=== PATIENT | female | born 1955 ===

== ENCOUNTER 2018-07-21 05:22 | Day surgery (SDC) | payer MEDICARE, OTHER ==
[2018-07-21] VITALS (9 sets, daily range): BP systolic 136–169; BP diastolic 34–75
[~2018-07-21] VITALS: Ht 147.3 cm; Wt 48.1 kg
[2018-07-21] MEDS ORDERED: FERROUS SULFAT325 MG ORAL (06:47)
[2018-07-21] MEDS ORDERED: NORMODYNE100 MG ORAL (06:47)
[2018-07-21] MEDS ORDERED: MULTIVITAMINS1 EAC2 ORAL (06:47)
[2018-07-21] MEDS ORDERED: BUMETANIDE2 MG ORAL (06:47)
[2018-07-21] MEDS ORDERED: ATORVASTATIN CA40 MG ORAL (06:47)
[2018-07-21] MEDS ORDERED: AMLODIPINE BESY10 MG ORAL (06:47)
[2018-07-21] MEDS ORDERED: FOLIC ACID1 MG ORAL (06:47)
[2018-07-21] MEDS ORDERED: LISINOPRIL5 MG ORAL (06:47)
[2018-07-21] MEDS ORDERED: VITAMIN D1000 UNI1 ORAL (06:47)
[2018-07-21] MEDS ORDERED: Heparin 5000 units/ml inj ONE (07:09)
[2018-07-21] MEDS ORDERED: Heparin 1000 units/ml 1ml Vial ONE (07:09)
[2018-07-21] MEDS ORDERED: Neosporin Oint Ud Pkt TOPIC ONE ×2 (07:10→07:33)
[2018-07-21] MEDS ORDERED: Thrombin 5000 units TOPIC ONE (07:11)
[2018-07-21] MEDS ORDERED: Lidocaine 1% Plain 30 ml INJ ONE (07:11)
[2018-07-21] MEDS ORDERED: Bupivacaine 0.25% Inj 30ml INJ ONE (07:11)
[2018-07-21] MEDS ORDERED: Gelfoam Size TOPIC ONE (07:11)
[2018-07-21] MEDS ORDERED: NeoSporin Gu Irrig 1ml Amp IRRIG ONE (07:12)
[2018-07-21] MEDS ORDERED: Bacitracin 50000 Units Vial ONE (07:12)
--- NOTE | 2018-07-21 07:14 | Anethesia Preoperative Eval ---
Anesthesia Pre-op PMH/ROS General Date of Evaluation: Jul 21, 2018 Time of Evaluation: 07:24 Anesthesiologist: Gaston ASA Score: ASA 3 Mallampati Score Class I : Soft palate, uvula, fauces, pillars visible Class II: Soft palate, uvula, fauces visible Class III: Soft palate, base of uvula visible Class IV: Only hard plate visible Mallampati Classification: Class II Surgeon: Mohan Diagnosis: ESRD Surgical Procedure: L Arm AV Shunt Anesthesia History: none Family History: no anesthesia problems Allergies: Coded Allergies: No Known Allergies (Unverified , 07/18/18) Medications: see eMAR Patient NPO?: Yes Past Medical History Cardiovascular: Reports: HTN, other - HL Gastrointestinal/Genitourinary: Reports: ESRD Hematology/Immune: Reports: anemia Anesthesia Pre-op Phys. Exam Physician Exam Last Vital Signs Date Time Temp Pulse Resp B/P (MAP) Pulse Ox O2 Delivery O2 Flow Rate FiO2 07/21/18 06:20 96.9 59 20 169/70 99 Room Air Constitutional: NAD Neurologic: CN 2-12 intact Cardiovascular: RRR Respiratory: CTA Gastrointestinal: S/NT/ND Airway Exam Mallampati Score: Class II MO: limited ROM: limited Teeth: missing, other - Some teeth Dentures: upper, lower Anesthesia Pre-op A/P Labs Chemistry Test 07/21/18 06:15 Potassium Level 4.7 MMOL/L (3.5-5.1) Risk Assessment & Plan Assessment: ASA 3 Plan: GA, SED Status Change Before Surgery: No Pre-Antibiotics Dru Gram Ancef IV Given Within 1 Hr of Incision: Yes Time Given: 07:46 Chapin Feldman MD Jul 21, 2018 07:14
[2018-07-21] MEDS ORDERED: LR 1000ml 1,000 ML IVLG SCH (07:16)
[2018-07-21] MEDS ORDERED: Sodium Chloride 10ml vial INJ ONE (07:17)
[2018-07-21] MEDS ORDERED: Lidocaine 1% MPF 10mg/ml 5ml ONE (07:17)
[2018-07-21] MEDS ORDERED: Propofol 200mg/20ml IV ONE (07:17)
[2018-07-21] MEDS ORDERED: Dexamethasone 4mg/ml vial ONE (07:17)
[2018-07-21] MEDS ORDERED: fentaNYL 100 mcg/2 mL IV ONE (07:18)
[2018-07-21] MEDS ORDERED: Midazolam 2mg/2ml Inj ONE (07:18)
[2018-07-21] MEDS ORDERED: NS Irrig 1000ml IRRIG ONE (07:29)
[2018-07-21] MEDS ORDERED: NS 500ML IVPB ONE (07:29)
[2018-07-21] MEDS ORDERED: Midazolam 2mg/2ml Inj IVP PRN (07:30)
[2018-07-21] MEDS ORDERED: LORazepam Inj 2mg/ml 1ml IV PRN (07:30)
[2018-07-21] MEDS ORDERED: DiphenhydrAMINE 50mg/ml Inj IVP PRN (07:30)
[2018-07-21] MEDS ORDERED: Metoclopramide 10mg/2ml Inj IVP PRN (07:30)
[2018-07-21] MEDS ORDERED: Sterile Water Irrig 1000ml IRRIG ONE (07:30)
[2018-07-21] MEDS ORDERED: fentaNYL 100 mcg/2 mL IV PRN (07:30)
[2018-07-21] MEDS ORDERED: oxyCODONE HCL/Acetaminophen 5/325mg ORAL PRN (07:30)
[2018-07-21] MEDS ORDERED: Meperidine 50mg/ml Inj(FOR RIGORS ONLY) IVP PRN (07:30)
[2018-07-21] MEDS ORDERED: Atropine Sulfate 0.4mg/ml inj IVP PRN (07:30)
[2018-07-21] MEDS ORDERED: Ketorolac 30mg Inj IV PRN ×2 (07:30)
[2018-07-21] MEDS ORDERED: Norco 5mg/325mg tab ORAL PRN (07:30)
[2018-07-21] MEDS ORDERED: LR 1000ml ONE (07:30)
[2018-07-21] MEDS ORDERED: Hydromorphone 0.5mg/0.5ml inj IVP PRN (07:30)
[2018-07-21] MEDS ORDERED: HYDROcodone/Acetamin 7.5/325 tab ORAL PRN (07:30)
--- NOTE | 2018-07-21 07:30 | Pre-Procedure Note/Attestation ---
Pre-Procedure Note/Attestation Complete Prior to Procedure Planned Procedure: left Procedure Narrative: Left arm arteriovenous shunt placement Indications for Procedure Pre-Operative Diagnosis: ESRD Attestation I attest that I discussed the nature of the procedure; its benefits; risks and complications; and alternatives (and the risks and benefits of such alternatives ), prior to the procedure, with the patient (or the patient's legal product support representative). I attest that, if there was a reasonable possibility of needing a blood transfusion, the patient (or the patient's legal product support representative) was given the [facility] standardized written summary, pursuant to the [place]smany Brock Blood Safety Act ([place] Health and Safety Code # 1645, as amended). I attest that I re-evaluated the patient just prior to the surgery and that there has been no change in the patient's H&P, except as documented below: Norman Preston MD Jul 21, 2018 07:30
[2018-07-21] MEDS ORDERED: Heparin Sod 1000 units/ml 10ml ONE (08:24)
--- NOTE | 2018-07-21 08:40 | Immediate Post-Op Evaluation ---
Immediate Post-Op Evalulation Immediate Post-Op Evalulation Procedure: Left Arm AV Shunt Date of Evaluation: Jul 21, 2018 Time of Evaluation: 09:30 IV Fluids: 200 NS Blood Products: 0 Estimated Blood Loss: 8 Urinary Output: 0 Blood Pressure Systolic: 159 Blood Pressure Diastolic: 34 Pulse Rate: 61 Respiratory Rate: 16 O2 Sat by Pulse Oximetry: 100 Temperature (Fahrenheit): 97 Pain Score (1-10): 2 Nausea: No Vomiting: No Complications 0 Patient Status: awake, reacts, patent, none Hydration Status: adequate Dru Grams Ancef IV Given Within 1 Hr of Incision: Yes Time Given: 07:46 Chapin Feldman MD Jul 21, 2018 08:40
--- NOTE | 2018-07-21 08:41 | 48 Hour Post Anesthesia Eval ---
Post Anesthesia Evaluation Procedure: Left Arm AV Shunt Date of Evaluation: Jul 21, 2018 Time of Evaluation: 11:34 Blood Pressure Systolic: 148 0: 56 Pulse Rate: 72 Respiratory Rate: 18 Temperature (Fahrenheit): 98.2 O2 Sat by Pulse Oximetry: 98 Airway: patent Nausea: No Vomiting: No Pain Intensity: 2 Hydration Status: adequate Cardiopulmonary Status: Stable Mental Status/LOC: patient returned to baseline Follow-up Care/Observations: 0 Post-Anesthesia Complications: 0 Follow-up care needed: ready to discharge Chapin Feldman MD Jul 21, 2018 08:41
[2018-07-21] MEDS ORDERED: Flumazenil 0.1mg/ml 5ml Inj IV ONE (09:06)
--- NOTE | 2018-07-21 09:27 | Operative Note - PDOC ---
Operative Note Operative Note Pre-op Diagnosis: ESRD Procedure: Left arm arteriovenous fistula placement (brachial artery to cephalic vein) Post-op Diagnosis: same as pre-op Surgeon: Norman Preston MD Anesthesiologist: Chapin Edgar MD Anesthesia: general Specimen: none Complications: none Condition: stable Estimated Blood Loss: minimal Drains: none Implant(s) used?: No Norman Preston MD Jul 21, 2018 09:27
[2018-07-21] MEDS ORDERED: Acetaminophen 500mg (ES) tab ORAL PRN (09:30)
--- NOTE | 2018-07-21 11:50 | NUR ---
REPORT GIVEN TO RECEIVING NURSE RODRÍGUEZ AT [facility]
--- NOTE | 2018-07-22 20:00 | Operative Note - Dictated ---
DATE OF OPERATION: 07/21/2018 SURGEON: Norman Preston M.D. ANESTHESIOLOGIST: Chapin Feldman M.D. PREOPERATIVE DIAGNOSIS: End-stage renal failure, on hemodialysis with need for permanent access for hemodialysis. POSTOPERATIVE DIAGNOSIS: End-stage renal failure, on hemodialysis with need for permanent access for hemodialysis. PROCEDURE: 1. Placement of left upper arm brachial artery antecubital to cephalic vein arteriovenous fistula. 2. Exploration and dilatation of left upper arm cephalic vein. ANESTHESIA: Local and general anesthesia with LMA. COMPLICATIONS: None. FINDINGS: Suitable left upper arm cephalic vein measured about 4 to 5 mm size with good venous flush. The left brachial artery was adequate size measured about 4 mm size, post AV shunt creation. The patient has strongly palpable thrill and radial pulse. The patient will require 6 to 8 weeks of time to allow for maturation. INDICATION FOR THE PROCEDURE: This is a 63-year-old female who presented for the above-mentioned procedure. Risks and benefits were discussed with the patient and family and consent was obtained. DESCRIPTION OF PROCEDURE: The patient was brought to the procedure room. After a dose of antibiotics and sedation by the anesthesiologist, the left arm was prepped and draped in the usual sterile manner. Under local anesthesia, left antecubital transverse skin incision was made. The cephalic vein was sharply dissected. The branches were divided using 2-0 and 3-0 silk suture. Distally, the cephalic vein was divided using 2-0 silk suture. The proximal cephalic vein was flushed with heparinized saline solution and coronary dilator up to 4 mm was advanced without difficulty. The vein was spatulated. The left brachial artery was sharply dissected. Proximal distal double loop control was obtained. Arteriotomy less than 0.5 cm was carried out. After systemic heparinization, the left brachial artery was flushed with heparinized saline solution. End-to-side anastomosis was carried out using a running 7-0 Prolene suture. Flow was restored using strongly palpable thrill and radial pulse. Wound was irrigated with antibody irrigation and closed using interrupted 2-0 and 3-0 Vicryl sutures. The skin was closed using a 4-0 Monocryl subcuticular skin closure. Sterile dressing was then applied. The patient tolerated the procedure very well. Norman Preston M.D. DR: PRACHI JOB#: [id number] CC: [email or web address]
== END 2018-07-21 11:30 | disposition home or self-care (01) ==
LOC: SUR 05:22
DX: I12.0 Hypertensive chronic kidney disease with stage 5 chronic kidney disease or end stage renal disease (principal); N18.6 End stage renal disease; Z99.2 Dependence on renal dialysis; I31.3 Pericardial effusion (noninflammatory); I35.1 Nonrheumatic aortic (valve) insufficiency; I36.1 Nonrheumatic tricuspid (valve) insufficiency; E78.5 Hyperlipidemia, unspecified; D64.9 Anemia, unspecified; G31.84 Mild cognitive impairment of uncertain or unknown etiology; I51.7 Cardiomegaly
CPT/HCPCS: 36415; 36818; 84132; J0690; J1100; J1644; J2001; J2250; J2405; J2704; J3010; J3490; J7040; 94003; 94150